=== PATIENT | male | born 1985 | race Two or more races ===

== ENCOUNTER → 2019-01-11 | Outpatient (CLI) | payer OTHER ==
--- NOTE | 2019-01-11 13:44 | KCIC ---
Complete abdominal ultrasound 01/11/2019 1:45 PM Clinical History: Generalized abdominal pain Technique: Ultrasound examination of the abdomen was performed, and multiple static images were submitted for review. Comparison: None available Findings: The pancreas is poorly visualized. Visualized aorta is unremarkable. The IVC is poorly visualized. Gallbladder demonstrates no evidence of wall thickening, stones, or sludge. The liver measures 14 cm longitudinally which is within normal limits. No focal hepatic lesions are seen. The liver is diffusely echogenic which most commonly reflects hepatic steatosis. Right kidney is unremarkable in appearance measuring 12.2 cm in length. The common bile duct is nondilated measuring 3 mm. The spleen is top normal in size measuring 11.4 cm longitudinally. Left kidney is normal in appearance measuring 11.4 cm longitudinally. IMPRESSION: Probable hepatic steatosis. Otherwise unremarkable abdominal ultrasound Electronically signed by: Denis Fernandez MD (01/11/2019 1:41 PM) [id number]
== END | disposition home or self-care (01) ==
LOC: KCIC US 12:36
PROVIDERS: ATTEND Family Medicine
DX: R10.84 Generalized abdominal pain (principal)
CPT/HCPCS: 76700